=== PATIENT | female | born 1960 | race African-American/Black ===

== ENCOUNTER 2019-05-24 06:12 | Inpatient (IN) | payer MEDICARE, OTHER ==
[2019-05-24] VITALS (8 sets, daily range): BP systolic 80–129; BP diastolic 41–85
[~2019-05-24] VITALS: Ht 162.6 cm; Wt 67.6 kg
[~2019-05-24 06:12] MED LIST: AMLO2.5T PO; ASPI81EC98 PO; FOLI1TAB19 PO; FURO-572 PO; LACT10SO1 PO; LID5T TP; LORA-476 PO; MSCON30 PO; NADO20TA PO; PANT40EC PO; POTA99TA PO; SPIR50TA PO; VITA-123 PO; [UNRECOGNIZED DRUG - CODE] PO; [UNRECOGNIZED DRUG - CODE] PO
[2019-05-24] MEDS ORDERED: NACL 0.9% 2,000 ML IV SCH (06:17)
[2019-05-24] MEDS ORDERED: PROCHLORPERAZINE 10 MG/2 ML VIAL IVP ONE (06:20)
[2019-05-24] MEDS ORDERED: fentaNYL 0.05 MG/ML VIAL IVP ONE ×2 (06:20→14:20)
[2019-05-24] MEDS ORDERED: OCTREOTIDE ACETATE 1.25 MG in NACL 0.9% 250 ML IV SCH (06:20)
[2019-05-24] MEDS ORDERED: PANTOPRAZOLE 40 MG INJ VIAL IVP ONE (06:20)
[2019-05-24 06:36] LABS: HEMATOCRIT 20.5 % (36-48); MEAN CORPUSCULAR HEMOGLOBIN 25 pg (27-31); MEAN CORPUSCULAR HGB CONC 31 g/dL (33-37); PLATELET COUNT (AUTO) 155 K/uL (140-450); RED BLOOD CELL COUNT(AUTO) 2.56 MIL/uL (4.20-5.40); RED CELL DISTRIBUTION WIDTH 20.9 % (11.6-13.7); WHITE BLOOD COUNT (AUTO) 6.8 K/uL (4.8-10.8)
--- NOTE | 2019-05-24 06:40 | NUR ---
58 Y/O FEMALE C/O BLOOD IN VOMIT X 30MINS AGO. B[place] FROM [place], LUNG SOUNDS CLEAR ALL THROUGHOUT. ABD: DISTENDED, FIRM, ASCITIES, ACTIVE BS. JAUNDICE. BP LOW 80/56. A & O X4. UNSTEADY GAIT. MILD YELLOW SCALERAS. VOMITING BLOOD X 30MIN AGO. PMH: ESOPHAGEAL VARICES, BLEEDING ESOPHAGEAL VARICES,CIRRHOSIS, HTN, HERNIAS. NKA.
[2019-05-24] MEDS ORDERED: cefTRIAXone 1,000 MG VIAL ONE (06:41)
[2019-05-24] MEDS ORDERED: OCTREOTIDE ACETATE 1000 MCG/5 ML VIAL ONE (06:42)
[2019-05-24 06:53] LABS: ALBUMIN 1.1 g/dL (3.4-5.0); ANION GAP 13.4 (8-16); CARBON DIOXIDE 27.5 mmol/L (21-32); CREATININE 1.9 mg/dL (0.6-1.3); TOTAL BILIRUBIN 1.1 mg/dL (0.0-1.0)
[2019-05-24 06:57] LABS: HEMOGLOBIN 6.4 g/dL (12.0-16.0)
--- NOTE | 2019-05-24 07:08 | NUR ---
PER VERBAL ORDER FOR SandoSTATIN, after mixing, Dr Lamas ordered 10ml bolus push IV. Then to continue to medication at 10ml/hr.
--- NOTE | 2019-05-24 07:10 | NUR ---
REPORT RECEIVED FROM OLIVE BURGESS. SANDOSTATIN AND NACL BOLUS RUNNING AT THIS TIME. ABNORMAL HEMOGLOBIN LAB RESULT.
--- NOTE | 2019-05-24 07:10 | NUR ---
CONTACT INFO DAUGHTER: OXANA [phone].
--- NOTE | 2019-05-24 07:10 | NUR ---
HAS AN APPOINTMENT FOR PARACENTESIS TODAY AT 1000 AT [facility]. GETS ONCE A WEEK PARACENTESIS.
--- NOTE | 2019-05-24 07:11 | NUR ---
PMH: SMOKER, ALCHOLSIM (LAST DRINK WAS 2 DAYS AGO)
[2019-05-24 07:15] LABS: PROTHROMBIN TIME 14.2 secs (10.8-13.4)
--- NOTE | 2019-05-24 07:16 | NUR ---
POTASSIUM 2.9 LACTIC ACID 4.8
--- NOTE | 2019-05-24 07:17 | NUR ---
XR AT BEDSIDE.
[2019-05-24 07:18] LABS: POTASSIUM 2.9 mmol/L (3.5-5.1)
--- NOTE | 2019-05-24 07:22 | NUR ---
PT GIVEN HOSPITAL PHONE TO CONTACT DAUGHTER
--- NOTE | 2019-05-24 07:23 | NUR ---
PAIN 10/10 PER PATIENT. PT HAS RECEIEVED FENTANYL PRIOR TO CHANGE OF SHIFT. NOTIFIED DR STRICKLAND OF PTS REQUEST FOR MORE PAIN MEDICATION
--- NOTE | 2019-05-24 07:25 | NUR ---
Pt report given to JENIFER CORRAL. Transfer of care at this time.
[2019-05-24] MEDS ORDERED: MORPHINE SULFATE 4 MG/ML SYR IVP ONE (07:30)
[2019-05-24] MEDS ORDERED: POTASSIUM CHL 20 MEQ/ 1/2 NS 1,000 ML IV ONE (07:30)
[2019-05-24 07:33] LABS: EOSINOPHILS % (MANUAL) 2 % (0-4); LYMPHOCYTES % (MANUAL) 23 % (20-46); MONOCYTES % (MANUAL) 10 % (5-12)
--- NOTE | 2019-05-24 07:46 | NUR ---
MORPHINE ADMINISTERED FOR PTS ABDOMINAL AND BACK PAIN 02/16. WARM PACK APPLIED TO PTS BACK FOR COMFORT AND PAIN MEASURES. POTASSIUM CHLORIDE STARTED AT 100 MLS/HR FOR PTS ABNORMAL POTASSIUM LEVEL
--- NOTE | 2019-05-24 08:01 | NUR ---
NADR, PAIN 02/16
--- NOTE | 2019-05-24 08:07 | NUR ---
BP 86/45 DR KRAMER NOTIFIED
--- NOTE | 2019-05-24 08:10 | NUR ---
VERBAL ORDER FOR NACL BOLUS
[2019-05-24] MEDS ORDERED: HYDROcodone/APAP 5/325 MG 1 TAB TAB PO PRN (08:15)
[2019-05-24] MEDS ORDERED: ONDANSETRON 4 MG/2 ML VIAL IM/IVP PRN (08:15)
[2019-05-24] MEDS ORDERED: DOCUSATE SODIUM 100 MG GELCAP PO PRN (08:15)
[2019-05-24] MEDS ORDERED: ACETAMINOPHEN 325 MG TAB PO PRN (08:15)
[2019-05-24] MEDS ORDERED: NACL 0.45% 1,000 ML IV ONE (08:15)
--- NOTE | 2019-05-24 08:22 | NUR ---
PATIENT AND DR KRAMER HAS SIGNED BLOOD CONSENT
--- NOTE | 2019-05-24 08:28 | NUR ---
BP 88/52
--- NOTE | 2019-05-24 08:40 | NUR ---
Patient will be admitted to care of [facility]. Admited to ICU BED 5. Belongings list completed. Report to INCOLE BURGESS. POTASSIUM CHLORIDE, NACL BOLUS, AND SANDOSTATIN INFUSION UPON ADMIT
--- NOTE | 2019-05-24 08:40 | NUR ---
PT ADMITTED TO ICU FROM ER. BEDSIDE REPORT RECEIVED FROM JENIFER CORRAL. PT IS AAOX4, ABLE TO MAKE NEEDS KNOWN AND FOLLOWS COMMANDS. TEMP 96.9. S[place]US [place] ON MONITOR. S1 S2 HEARD. PT IS ON ROOM AIR. SPO2 99%. LUNGS SOUND CLEAR BILATERALLY. NO SIGNS OF RESPIRATORY DISTRESS OR SOB NOTED. ABDOMEN ROUND AND DISTENDED. BOWEL SOUNDS PRESENT. PERIPHERAL IVS G 18 TO RIGHT EJ AND LEFT FOREARM PATENT AND INTACT, RUNNING SANDOSTATIN AT 10 ML/HR AND KCL IN 1/2 NS AT 100 ML/HR. SKIN IS INTACT, DRY AND WARM TO TOUCH. PULSES PALPABLE TO ALL EXTREMITIES. CAP REFILL < 2 SEC. BED IN LOWEST POSITION LOCKED. CALL LIGHT WITHIN REACH. DR. HAGAN AT BEDSIDE SPEAKING WITH PT. SAFETY PRECAUTIONS IN PLACE. WILL CONTINUE TO MONITOR.
[2019-05-24] MEDS ORDERED: NACL 0.9% 1,000 ML IV ONE (08:50)
--- NOTE | 2019-05-24 08:50 | NUR ---
1ST UNIT OF BLOOD TRANSFUSION STARTED. WILL MONITOR FOR S/SX OF ADVERSE REACTIONS.
[2019-05-24] MEDS: FOLIC ACID 1 MG TAB PO SCH (09:00)
[2019-05-24] MEDS ORDERED: LORazepam 2 MG/ML VIAL IVP PRN (09:00)
[2019-05-24] MEDS: THIAMINE 100 MG TAB PO SCH (09:00)
[2019-05-24] MEDS: MORPHINE SULFATE 2 MG/ML SYR IVP PRN ×4 (09:20→21:36)
--- NOTE | 2019-05-24 09:25 | NUR ---
RECEIVED CALL FROM DR. VELAZQUEZ. REPORT GIVEN ON PT'S CONDITION.
[2019-05-24] MEDS ORDERED: PANTOPRAZOLE 80 MG in NACL 0.9% 100 ML IV SCH (09:30)
--- NOTE | 2019-05-24 09:30 | NUR ---
RECEIVED CALL FROM AUNT NAVI. UPDATES GIVEN ON PT'S CONDITION.
--- NOTE | 2019-05-24 09:35 | NUR ---
STAHL CATH INSERTED. PT TOLERATED WELL.
[2019-05-24 09:37] LABS: MAGNESIUM 1.6 mg/dL (1.8-2.4); PHOSPHORUS 3.7 mg/dL (2.5-4.9); THYROID STIMULATING HORMONE 1.32 uIU/mL (0.34-3.74)
[2019-05-24] MEDS: NACL 0.9% 1,000 ML IV SCH (10:01)
[2019-05-24] MEDS ORDERED: MULTIVITAMIN 1 TAB PO SCH (10:09)
--- NOTE | 2019-05-24 10:20 | NUR ---
RECEIVED ORDER TO ADMINISTER ANOTHER 2 MG MORPHINE FOR CENTRAL LINE INSERTION. DR. HAGAN AWARE THAT PT HAD MORPHINE 2MG AT 0920. OK TO GIVE ANOTHER DOSE PER DR. HAGAN. ORDER CARRIED OUT.
[2019-05-24] MEDS ORDERED: POTASSIUM CHLORIDE 40 MEQ, LIDOCAINE MPF 1% 25 MG in NACL 0.9% 250 ML IV SCH (10:30)
--- NOTE | 2019-05-24 10:30 | NUR ---
CENTRAL LINE INSERTION AT BEDSIDE. PT TOLERATING WELL.
--- NOTE | 2019-05-24 10:39 | NUR ---
DISCHARGE PLANNING: CONTACTED [facility] AT [phone] ABLE TO SPEAK TO [facility] [employer]ULT EDUCATION. SHE STATED THERE IS NO COLLECTOR OF AQUARIUM SPECIMENS ASSIGNED YET TO THE PATIENT SINCE THEY JUST OPENED THE CASE. SHE ALSO PROVIDED ME THE FAX NUMBER [phone] TO SEND CLINICALS. CLINICALS SENT. Addendum: 05/25/19 at 0985 by Ophelia Beal DC PLANNING: FAXED THE POST STABILIZATION FORM AND THE ORDER TO [facility] [phone]. CALLED [facility] SPOKE WITH THE COORDINATOR STATED STILL NO CM ASSIGNED TO THIS PT, ONCE THEY RECEIVE THE ORDER WILL REVIEW IT AND CALL BACK. CM TO FOLLOW Addendum: 05/25/19 at 1722 by Chelita Godfrey CM Received Cm order to transfer pt out for higher level of care. Orders and packet faxed to [place] with phone numbers to f/u with journeyman powerhouse operator, unit and residents. Milk Condenser notified. Chelita Godfrey, ACSW/CM Ext [phone]
[2019-05-24] MEDS ORDERED: MULTIVITAMIN-12 10 ML, THIAMINE 100 MG, MAGNESIUM SULFATE 50% 2,000 MG, FOLIC ACID 1 MG... IV SCH ×5 (11:00)
--- NOTE | 2019-05-24 11:00 | NUR ---
CENTRAL LINE UNABLE TO INSERT. PT RECEIVING BLOOD TRANSFUSION AND HAS ONLY ONE MORE IV ACCESS. PER KEYONA, PHARMACIST, RUN KCL AND PROTONIX TOGETHER AT THIS TIME AND CONTINUE BANANA BAG AND SANDOSTATIN AFTER BLOOD TRANSFUSION. DR. HAGAN AWARE.
--- NOTE | 2019-05-24 11:10 | NUR ---
BLOOD TRANSFUSION FINISHED. PT TOLERATED WELL. NO SIGNS OF ADVERSE REACTIONS NOTED.
--- NOTE | 2019-05-24 11:15 | NUR ---
CALLED PICC LINE OFFICE AT [phone] AND MADE AWARE OF PICC LINE INSERTION ORDER. PER STAFF, WILL RELAY MESSAGE TO ON-CALL PICC LINE NURSE
--- NOTE | 2019-05-24 11:30 | NUR ---
2ND UNIT OF BLOOD TRANSFUSION STARTED.
[2019-05-24] MEDS ORDERED: ALBUTEROL SULFATE/IPRATROPIU 3 ML SOL IH PRN (11:35)
[2019-05-24 11:43] LABS: BILIRUBIN,URINE 2+ (NEGATIVE); BLOOD, URINE NEGATIVE (NEGATIVE); COLOR,URINE YELLOW (YELLOW); LEUKOCYTE ESTERASE ,URINE NEGATIVE (NEGATIVE); NITRITE, URINE NEGATIVE (NEGATIVE); UGLUCOSE NEGATIVE (NEGATIVE)
--- NOTE | 2019-05-24 11:45 | NUR ---
BP 84/[address] HAGAN AWARE. NO NEW ORDERS GIVEN.
[2019-05-24 11:49] LABS: BARBITURATE, URINE NEG. ng/ml (NEG <=200); BENZODIAZEPINE, URINE NEG. ng/mL (NEG <=200); CANNABINOID, URINE NEG. ng/mL (NEG <=50); COCAINE, URINE NEG. ng/mL (NEG <=300); OPIATE, URINE POS. ng/mL (NEG <=2000); PHENCYCLIDINE SCREEN,URINE NEG. ng/mL (NEG <=25)
[2019-05-24] MEDS ORDERED: SPIRONOLACTONE 50 MG TAB PO SCH (11:55)
[2019-05-24] MEDS ORDERED: FUROSEMIDE 20 MG TAB PO SCH (11:55)
[2019-05-24] MEDS: LORazepam 1 MG TAB PO SCH ×3 (11:59→23:19)
[2019-05-24] MEDS ORDERED: MAG SULF 2000 MG/WATER PREMIX 50 ML IV ONE (12:00)
[2019-05-24] MEDS ORDERED: MAG SULF 2000 MG/WATER PREMIX 50 ML IV SCH (12:00)
[2019-05-24] MEDS ORDERED: LORazepam 1 MG TAB PO SCH (12:00)
[2019-05-24] MEDS ORDERED: LORazepam 2 MG/ML VIAL IVP SCH (12:00)
--- NOTE | 2019-05-24 12:00 | NUR ---
DR. HAGAN AWARE OF LOW BP 83/54 (MAP 65) AT THIS TIME. HOLD ATIVAN AT THIS TIME PER DR. HAGAN.
[2019-05-24 12:10] LABS: RBC,URINE 0-5 /HPF (0-5); WBC,URINE 0-5 /HPF (0-5)
[2019-05-24 12:11] LABS: HYALINE CASTS, URINE 0-10 /LPF (None Seen)
[2019-05-24 12:12] LABS: YEAST,URINE Rare /HPF (None Seen)
[2019-05-24 12:14] LABS: APPEARANCE,URINE HAZY (CLEAR)
[2019-05-24] MEDS ORDERED: AZITHROMYCIN 500 MG in DEXTROSE 5% 250 ML IV ONE (13:00)
--- NOTE | 2019-05-24 13:00 | NUR ---
PER PICC LINE NURSE, HYACINTH, HE WILL COME AROUND 5 PM FOR PICC LINE INSERTION.
[2019-05-24] MEDS ORDERED: MIDAZOLAM 2 MG/2 ML VIAL ONE (13:10)
[2019-05-24] MEDS ORDERED: fentaNYL 0.05 MG/ML VIAL ONE (13:10)
--- NOTE | 2019-05-24 13:30 | NUR ---
EGD AT BEDSIDE BY DR. VELAZQUEZ AND OR TEAM. WILL FOLLOW UP ON ORDERS AND CONTINUE TO MONITOR.
[2019-05-24] MEDS ORDERED: ALBUMIN HUMAN 25% 100 ML IV SCH (13:40)
[2019-05-24] MEDS ORDERED: FUROSEMIDE 20 MG/2 ML VIAL IVP SCH (13:40)
--- NOTE | 2019-05-24 14:10 | NUR ---
LINENS CHANGED, BED BATH GIVEN. PT TOLERATED WELL.
[2019-05-24] MEDS ORDERED: MIDAZOLAM 2 MG/2 ML VIAL IVP ONE (14:20)
[2019-05-24] MEDS: OCTREOTIDE ACETATE 1.25 MG in NACL 0.9% 250 ML IV SCH ×3 (14:24→16:35)
[2019-05-24] MEDS: ALBUMIN HUMAN 25% 100 ML IV SCH ×2 (14:25→20:14)
--- NOTE | 2019-05-24 14:55 | NUR ---
EGD COMPLETED. PER DR. VELAZQUEZ, ONLY 2 UNITS OF PRBC TO BE GIVEN AT THIS TIME. DR. VELAZQUEZ AND DR. HAGAN MADE AWARE OF LOW URINE OUTPUT 40 ML SINCE STAHL INSERTION. ORDER RECEIVED. WILL CONTINUE TO MONITOR.
--- NOTE | 2019-05-24 15:09 | NUR ---
FABIANA FROM LAB MADE AWARE THAT BLOOD TRANSFUSION WAS DONE AT 1400 AND CBC TO BE DRAWN AROUND 1600.
[2019-05-24 16:38] LABS: BASOPHILS % (AUTO) 0.1 % (0.0-2.0); HEMATOCRIT 27.3 % (36-48); HEMOGLOBIN 8.4 g/dL (12.0-16.0); LYMPHOCYTES # (AUTO) 0.6 K/uL (2.5-16.5); LYMPHOCYTES % (AUTO) 3.3 % (20.5-51.1); MEAN CORPUSCULAR HEMOGLOBIN 27 pg (27-31); MEAN CORPUSCULAR HGB CONC 31 g/dL (33-37); MEAN CORPUSCULAR VOLUME 86.2 fL (80-94); MONOCYTES # (AUTO) 1.4 K/uL (0.8-1.0); MONOCYTES % (AUTO) 8.3 % (1.7-9.3); NEUTROPHILS # (AUTO) 15.2 K/uL (1.8-7.7); NEUTROPHILS % (AUTO) 88.3 % (42.2-75.2); PLATELET COUNT (AUTO) 139 K/uL (140-450); RED BLOOD CELL COUNT(AUTO) 3.17 MIL/uL (4.20-5.40); RED CELL DISTRIBUTION WIDTH 18.4 % (11.6-13.7); WHITE BLOOD COUNT (AUTO) 17.2 K/uL (4.8-10.8)
--- NOTE | 2019-05-24 17:08 | NUR ---
UNABLE TO COLLECT SPUTUM. PT DOES NOT COUGH. DR. HAGAN NOTIFIED. HOLD OFF TO COLLECT SPUTUM AT THIS TIME PER DR. HAGAN.
[2019-05-24] MEDS: METOCLOPRAMIDE 10 MG/2 ML INJ VIAL IVP SCH ×2 (17:31→23:19)
[2019-05-24] MEDS: SODIUM FERRIC GLUCONATE 125 MG in NACL 0.9% 100 ML IV SCH (17:54)
--- NOTE | 2019-05-24 18:03 | NUR ---
URINE OUTPUT 140 ML SINCE STAHL INSERTION AT 0935. DR. NORRIS MADE AWARE. WILL FOLLOW UP ON ORDERS.
[2019-05-24] MEDS ORDERED: MAGNESIUM CITRATE 300 ML BTL PO SCH (18:40)
[2019-05-24 18:48] LABS: ANION GAP 14.6 (8-16); CARBON DIOXIDE 24.8 mmol/L (21-32); POTASSIUM 4.4 mmol/L (3.5-5.1)
[2019-05-24 18:49] LABS: CREATININE 1.7 mg/dL (0.6-1.3)
--- NOTE | 2019-05-24 19:18 | NUR ---
REPORT GIVEN TO DEHYDROGENATION OPERATOR HEAD RN FOR CONTINUITY OF CARE. NO S/SX OF DISTRESS NOTED AT THIS TIME.
--- NOTE | 2019-05-24 19:19 | NUR ---
REPORT RECEIVED FROM AM NURSE AT BEDSIDE. PT IN STABLE CONDITION. AAOX1-2. PT CURRENTLY SLEEPING. NO COMPLAINTS OF PAIN. NO SOB. PT IS AMBULATORY. PT HAS STAHL INSERTED TODAY 05/24/19 DURING THE AM SHIFT. IV SITE R EJ 18G RUNNING SANDOSTATIN@10ML/HR PATENT AND INTACT. L UA 18G RUNNING NS@10ML/HR PATENT AND INTACT. SKIN WARM, DRY, AND INTACT WITH NO OPEN WOUNDS. BED LOCKED IN LOW POSITION. CALL VILLEGAS WITHIN REACH. SAFETY PRECAUTION IN PLACE. ALL NEEDS MET AT THIS TIME.
--- NOTE | 2019-05-24 19:30 | NUR ---
PICC LINE NURSE ARRIVED TO INSERT PICC LINE.
[2019-05-24] MEDS: RIFAXIMIN 550 MG TAB PO SCH (20:09)
[2019-05-24] MEDS: SPIRONOLACTONE 50 MG TAB PO SCH (20:09)
[2019-05-24] MEDS: SENNA 8.6 MG TAB PO SCH (20:09)
--- NOTE | 2019-05-24 20:09 | NUR ---
ALBUMIN HUNG AND RUNNING. LASIX GIVEN IVP. ALDACTONE, SENNA, LACTULOSE, AND XIFAXAN GIVEN PO. PT TOLERATED WELL.
[2019-05-24] MEDS: LACTULOSE 20 GM/30 ML UDC PO SCH (20:13)
[2019-05-24] MEDS: FUROSEMIDE 20 MG/2 ML VIAL IVP SCH (20:15)
--- NOTE | 2019-05-24 20:25 | NUR ---
XRAY IN FOR PLACEMENT OF PICC LINE.
[2019-05-24] MEDS ORDERED: NON-FORMULARY ITEM (Lactulose 30 ML) PO SCH (21:00)
--- NOTE | 2019-05-24 21:20 | NUR ---
HYACINTH BURGESS PICC LINE NURSE REQUESTED REPEAT CXR DUE TO PICC LINE BEING 2CM TOO DEEP. LINE HAS BEEN ADJUSTED. AWAITING RADIOLOGY FOR REPEAT CXR.
--- NOTE | 2019-05-24 21:36 | NUR ---
MORPHINE GIVEN FOR 7/10 ABDOMINAL PAIN. PT TOLERATED WELL. PT REPOSITIONED.
[2019-05-25] VITALS (48 sets, daily range): BP systolic 38–135; BP diastolic 18–112
--- NOTE | 2019-05-25 | NUR ---
PATIENT REPOSITIONED FOR COMFORT. DENIES PAIN AT THIS TIME. CALL LIGHT WITHIN REACH.
--- NOTE | 2019-05-25 02:00 | NUR ---
PATIENT ASLEEP IN BED. NO SIGNS OF DISTRESS OR PAIN. ST ON MONITOR. BP 94/60 MAP 74. CALL LIGHT WITHIN REACH. WILL CONTINUE TO MONITOR.
[2019-05-25] MEDS: OCTREOTIDE ACETATE 1.25 MG in NACL 0.9% 250 ML IV SCH ×2 (03:58→16:00)
--- NOTE | 2019-05-25 04:00 | NUR ---
PATIENT REPOSITIONED FOR COMFORT. STAHL CATH CARE PROVIDED. PICC LINE SITE CLEANED USING CHG WIPES. CALL LIGHT WITHIN REACH. WILL CONTINUE TO MONITOR.
[2019-05-25] MEDS: METOCLOPRAMIDE 10 MG/2 ML INJ VIAL IVP SCH ×3 (05:13→18:50)
[2019-05-25] MEDS: NACL 0.9% 1,000 ML IV SCH (05:13)
--- NOTE | 2019-05-25 06:00 | NUR ---
PATIENT RESTING IN BED. BP 94/[address] ON MONITOR. CALL LIGHT WITHIN REACH. WILL CONTINUE TO MONITOR
[2019-05-25] MEDS ORDERED: BISACODYL 10 MG SUPP RC SCH (07:00)
[2019-05-25 07:07] LABS: FOLIC ACID 5.3 ng/mL (>3.0)
--- NOTE | 2019-05-25 07:17 | NUR ---
ENDORSED PATIENT TO DAY SHIFT NURSE ANNE FOR CONTINUITY OF CARE. PATIENT ASLEEP. ST ON MONITOR
--- NOTE | 2019-05-25 07:18 | NUR ---
RECEIVED BEDSIDE REPORT FROM AGENCY SERVICE REPRESENTATIVE NURSE, PT IS AAOX2, DROWSY, ABLE TO FOLLOW SIMPLE COMMANDS, VSS, STATED PAIN TO ABDOMEN 5/10, NO S/S OF DISTRESS, CLEAR LUNG SOUNDS DOMINIQUE. ON RA, O2 SAT 98%, DENIES CHEST PAIN, ST ON FENCE MANUFACTURE SUPERVISOR, CAP REFILL <2 SEC, LARGE DISTENDED ABDOMEN WITH ACTIVE BOWEL SOUNDS, STAHL CATHETER IN PLACE WITH CLEAR NITHIN URINE VIA GRAVITY, ABLE TO MOVE ALL EXTREMITIES, GENERALIZED WEAKNESS NOTED, SKIN IS WARM AND DRY TO TOUCH, SKIN INTACT, PICC LINE TO CEHNTE, PATENT, RUNNING BANANA BAG AT 50 ML/HR, AND SANDOSTATIN AT 100MCG/KG/HR. RIGHT EJ 18GA, PATENT AND SL. HOB ELEVATED TO 30 DEGREES, SAFETY MEASURES IN PLACE, CALL LIGHT WITHIN REACH, WILL CONTINUE TO MONITOR.
--- NOTE | 2019-05-25 07:25 | NUR ---
CALLED DR. HAGAN REGARDING WHAT IS THE SCHEDULE FOR PARACENTESES, DR. HAGAN SAID WAITING FOR RADIOLOGIST AT THIS TIME.
--- NOTE | 2019-05-25 07:30 | NUR ---
ENDORSED PATIENT CARE TO JENIFER GROSS AT THIS TIME.
[2019-05-25 07:35] LABS: BASOPHILS % (AUTO) 0.2 % (0.0-2.0); EOSINOPHILS # (AUTO) 0.1 K/uL (0-0.4); EOSINOPHILS % (AUTO) 0.4 % (0.0-4.0); LYMPHOCYTES # (AUTO) 0.9 K/uL (2.5-16.5); LYMPHOCYTES % (AUTO) 6.7 % (20.5-51.1); MEAN CORPUSCULAR HEMOGLOBIN 27 pg (27-31); MEAN CORPUSCULAR HGB CONC 32 g/dL (33-37); MEAN CORPUSCULAR VOLUME 84.8 fL (80-94); MONOCYTES % (AUTO) 7.3 % (1.7-9.3); NEUTROPHILS # (AUTO) 12.1 K/uL (1.8-7.7); NEUTROPHILS % (AUTO) 85.4 % (42.2-75.2); PLATELET COUNT (AUTO) 108 K/uL (140-450); RED BLOOD CELL COUNT(AUTO) 2.26 MIL/uL (4.20-5.40); WHITE BLOOD COUNT (AUTO) 14.2 K/uL (4.8-10.8)
--- NOTE | 2019-05-25 07:40 | NUR ---
CRITICAL LAB WITH HGB 6.2, REPORTED TO DR. HAGAN, WILL ORDER 2UNITS OF RBC, INFORMED BLOOD BANK
[2019-05-25 07:41] LABS: HEMATOCRIT 19.2 % (36-48); HEMOGLOBIN 6.2 g/dL (12.0-16.0)
[2019-05-25] MEDS: FUROSEMIDE 20 MG/2 ML VIAL IVP SCH ×2 (08:52→20:31)
[2019-05-25] MEDS: LACTULOSE 20 GM/30 ML UDC PO SCH ×2 (08:52→20:32)
[2019-05-25] MEDS: SENNA 8.6 MG TAB PO SCH ×2 (08:53→20:32)
[2019-05-25] MEDS: SPIRONOLACTONE 50 MG TAB PO SCH ×2 (08:53→20:32)
[2019-05-25] MEDS: FOLIC ACID 1 MG TAB PO SCH (08:53)
[2019-05-25] MEDS: THIAMINE 100 MG TAB PO SCH (08:54)
[2019-05-25] MEDS: RIFAXIMIN 550 MG TAB PO SCH ×2 (08:54→20:32)
--- NOTE | 2019-05-25 08:56 | NUR ---
PATIENT HAS BEEN SCREENED AND CATEGORIZED HIGH NUTRITION RISK. PATIENT WILL BE SEEN WITHIN 1-2 DAYS OF ADMISSION. 05/25/[address]
[2019-05-25] MEDS ORDERED: MULTIVITAMIN 1 TAB PO SCH (09:00)
[2019-05-25] MEDS ORDERED: FUROSEMIDE 20 MG TAB PO SCH (09:00)
[2019-05-25] MEDS ORDERED: LACTOBACILLUS RHAMNOSUS GG 1 EACH CAP PO SCH (09:00)
[2019-05-25] MEDS ORDERED: SPIRONOLACTONE 50 MG TAB PO SCH (09:00)
[2019-05-25] MEDS ORDERED: PANTOPRAZOLE 40 MG INJ VIAL IVP SCH ×2 (09:00)
--- NOTE | 2019-05-25 09:06 | NUR ---
SCHEDULED MEDICATION GIVEN, PATIENT TOLERATED WELL.
[2019-05-25] MEDS: MAGNESIUM CITRATE 300 ML BTL PO SCH ×2 (09:11→11:01)
[2019-05-25] MEDS ORDERED: FLUCONAZOLE 100 MG TAB PO SCH (09:30)
[2019-05-25 09:36] LABS: CHOL/HDL RATIO 2.8 (1-4.5)
--- NOTE | 2019-05-25 10:35 | NUR ---
PT IS OFF UNIT FOR CT SCAN WITH RN AND CANINE ENFORCEMENT OFFICER.
--- NOTE | 2019-05-25 10:44 | NUR ---
PATIENT IS BACK TO UNIT, NO INCIDENT OCCUR, NO S/S OF DISTRESS, VSS, DENIES PAIN, POSITION CHANGED FOR OFF LOAD PRESSURE.
--- NOTE | 2019-05-25 11:00 | NUR ---
PT HAD A BM, BLACK STOOL, WILL SEND SPECIMEN TO LAB.
--- NOTE | 2019-05-25 11:00 | NUR ---
STARTED PRECEDEX, DRY WEIGHT 87.5KG. LOADING DOSE STARTED. Addendum: 05/26/19 at 1016 by Manuel Ray RN PLEASE DISCARD, WRONG PT.
--- NOTE | 2019-05-25 11:10 | NUR ---
DR ACOSTA SEEN PT.
--- NOTE | 2019-05-25 11:25 | NUR ---
CALLED LAB FOR PRBC WHICH IS STILL PENDING.
--- NOTE | 2019-05-25 11:30 | NUR ---
CALLED US TECH FOR PARACENTESIS. US TECH SAID WILL CALL ME BACK AND LET ME KNOW THE TIME FOR THE PROCEDURE WHEN THEY GET HOLD OF THE RADIOLOGIST.
[2019-05-25] MEDS ORDERED: PIPERACILLIN/TAZOBACTAM 4.5 GM in DEXTROSE 5% 100 ML IV SCH ×5 (12:00→18:00)
--- NOTE | 2019-05-25 12:00 | NUR ---
1 ST UNITS OF RBC STARTED, PT VSS, NO S/S OF DISTRESS, TWO RNS VERIFIED.
--- NOTE | 2019-05-25 12:23 | NUR ---
Late entry. Confirmed with RN that 0.45 NS IV completed at 0840 and Sandostatin completed at 0840 at time of transfer. Continued on other unit.
[2019-05-25] MEDS: LORazepam 1 MG TAB PO SCH ×2 (12:26→18:00)
--- NOTE | 2019-05-25 12:33 | NUR ---
CALLED RESIDENT MD JOHN, MADE HIM AWARE PT VOMITED BLOOD.
[2019-05-25] MEDS ORDERED: NACL 0.9% 500 ML IV SCH (12:40)
--- NOTE | 2019-05-25 12:41 | NUR ---
CALLED DR HAGAN AND MADE HER AWARE PT VOMIT BLOOD AND HAS DARK BLOODY STOOL. BP 79/56. Addendum: 05/31/19 at 0925 by Manuel Ray RN MADE DR HAGAN AWARE ESTIMATED BLOOD EMESIS IS ABOUT 200ML
--- NOTE | 2019-05-25 12:58 | NUR ---
DR. ACOSTA CAME IN STATED INTUBATING PATIENT, RT AND DR. HAGAN AT BEDSIDE, PT HR 119, BP 82/52, RR 14, O2 SAT 99%, DR. ACOSTA ORDERED ETOMIDATE 40 MG AND SUCCINYLCHOLINE 50 MG IV PUSH AND GIVEN BEFORE THE PROCEDURE.
[2019-05-25] MEDS ORDERED: ETOMIDATE 20 MG/10 ML VIAL IVP SCH (13:00)
[2019-05-25] MEDS ORDERED: AZITHROMYCIN 250 MG in DEXTROSE 5% 250 ML IV SCH (13:00)
[2019-05-25] MEDS ORDERED: metroNIDAZOLE 500 MG/NS PREMIX 100 ML IV SCH (13:00)
--- NOTE | 2019-05-25 13:00 | NUR ---
BOLUS PT WITH 500ML NS.
[2019-05-25] MEDS ORDERED: SUCCINYLCHOLINE CHLORIDE 200 MG/10 ML VIAL IVP SCH (13:15)
--- NOTE | 2019-05-25 13:15 | NUR ---
PT BP 77/58, HR 200, O2 SAT 78% RR 21, DR. ACOSTA AND DR. HAGAN AT BEDSIDE, LEVOPHED AND IV NS BOLUS RUNNING AT THIS TIME.
--- NOTE | 2019-05-25 13:20 | NUR ---
STARTED PT ON LEVOPHED 12MCG/KG/MIN
--- NOTE | 2019-05-25 13:25 | NUR ---
PT IS INTUBATED AND AGITATED, STILL VOMITING BRIGHT RED BLOOD, SUCTION PROVIDED BY RT, DR. ACOSTA ORDERED PROPOFOL DRIP.
[2019-05-25] MEDS ORDERED: PROPOFOL 1000 MG/100 ML PREMIX 100 ML IV ONE (13:36)
--- NOTE | 2019-05-25 13:40 | NUR ---
PER DR. HAGAN NO NEED TO ACTIVE THE MASSIVE HEMORRHAGE PROTOCOL AT THIS TIME, SHE WILL ORDER MORE BLOOD TRANSFUSION, BLOOD BANK MADE AWARE.
--- NOTE | 2019-05-25 13:40 | NUR ---
STARTED PROPOFOL, DRY WEIGHT 67.6KG
[2019-05-25] MEDS ORDERED: MIDAZOLAM MDV 50 MG in NACL 0.9% 40 ML IV PRN (13:45)
--- NOTE | 2019-05-25 13:50 | NUR ---
PER DR. HAGAN PARACENTESIS CANCELED AT THIS TIME DUE TO PATIENT IS ACTIVE BLEEDING.
--- NOTE | 2019-05-25 13:50 | NUR ---
DR. HAGAN SPOKE TO PATIENT'S AUNT NAVI RILEY ON THE PHONE AND UPDATED PATIENT'S CONDITION AND CRITICAL SITUATION.
[2019-05-25] MEDS ORDERED: PANTOPRAZOLE 80 MG in NACL 0.9% 100 ML IV SCH (14:00)
--- NOTE | 2019-05-25 14:00 | NUR ---
DR. VELAZQUEZ CAME IN TO SEE PATIENT AT BEDSIDE, DR. HAGAN UPDATED PATIENT'S CONDITION
--- NOTE | 2019-05-25 14:10 | NUR ---
PATIENT'S MOTHER ANGEL WILSON CALLED, UPDATED PATIENT'S CONDITION, LEFT NUMBER TO CALL [phone].
[2019-05-25] MEDS ORDERED: SODIUM BICARBONATE 8.4% 50 MEQ/50 ML VIAL ONE (14:28)
--- NOTE | 2019-05-25 14:37 | NUR ---
DR. VELAZQUEZ STARTED BEDSIDE PROCEDURE, DR. HAGAN AND SURGICAL TEAM AT BEDSIDE.
--- NOTE | 2019-05-25 14:40 | NUR ---
2ND UNITS OF RBC STARTED, PT BP 106/55, HR 112, RR 26, TEMP 96.6F, O2 SAT 98%. DR. VELAZQUEZ STILL DOING PROCEDURE AT BEDSIDE.
--- NOTE | 2019-05-25 15:30 | NUR ---
DR HAGAN WANTS ANOTHER 1.5L BOLUS NS. TOTAL BOLUS WILL BE 2L.
--- NOTE | 2019-05-25 15:36 | NUR ---
PROCEDURE ENDED AT THIS TIME, ELAINE TUBE IS PLACED. PATIENT'S HR 196, BP 71/49, RR 25, O2 100%. Addendum: 05/25/19 at 1557 by Mark Campuzano RN DR. HAGAN NOTED THE BP LEVEL, LEVOPHED IS ON MAX DOSE AT THIS TIME, WILL ORDER PHENYLEPHRINE.
--- NOTE | 2019-05-25 15:37 | NUR ---
DR VELAZQUEZ DONE WITH EGD AND INSERTING ELAINE TUBE. WANTS TO HAVE KUB TO CHECK PLACEMENT.
[2019-05-25] MEDS ORDERED: PHENYLEPHRINE 10 MG/ML VIAL ONE (15:40)
[2019-05-25] MEDS ORDERED: GLUCAGON 1 MG VIAL ONE (15:43)
[2019-05-25] MEDS ORDERED: PROPOFOL 1000 MG/100 ML PREMIX 100 ML IV PRN (15:45)
[2019-05-25] MEDS ORDERED: SODIUM BICARBONATE 8.4% PFS 50 MEQ/50 ML SYR IVP ONE (15:45)
[2019-05-25] MEDS ORDERED: COMMUNICATION ORDER MC PRN (15:45)
[2019-05-25] MEDS ORDERED: PHENYLEPHRINE 40 MG in NACL 0.9% 250 ML IV PRN (15:45)
--- NOTE | 2019-05-25 15:50 | NUR ---
TIDAL CO2 27 TO 32.
--- NOTE | 2019-05-25 16:13 | NUR ---
05/25/19 RD INITIAL ASSESSMENT COMPLETED PLEASE REFER TO NUTRITION ASSESSMENT UNDER CARE ACTIVITY FOR ESTIMATED NUTRITIONAL NEEDS. 1. CONTINUE FULL LIQUID DIET TOLERATED 2. RD RECOMMEND ENSURE BID 3. RD TO FOLLOW-UP 2-3 DAYS, HIGH RISK MING[address]
--- NOTE | 2019-05-25 16:20 | NUR ---
3RD UNITS OF RBC STARTED, TEMP 96.4F, HR 104 RR 26, BP 93/56, O2 SAT 96%, WILL CONTINUE TO MONITOR.
[2019-05-25 16:22] LABS: ANION GAP 24.1 (8-16); CARBON DIOXIDE 14.3 mmol/L (21-32); CREATININE 2.5 mg/dL (0.6-1.3); POTASSIUM 4.4 mmol/L (3.5-5.1)
--- NOTE | 2019-05-25 16:25 | NUR ---
SAL-SYNEPHRINE STARTED ORDERED.
[2019-05-25 16:27] LABS: ALBUMIN 1.4 g/dL (3.4-5.0); TOTAL BILIRUBIN 2.1 mg/dL (0.0-1.0)
--- NOTE | 2019-05-25 16:29 | NUR ---
DR. LLAMAS AND DR. HAGAN AT BEDSIDE DOING CHEST TUBE INSERTION AT THIS TIME.
--- NOTE | 2019-05-25 16:52 | NUR ---
MADE DR HAGAN AWARE TOTAL OF 2L NS BOLUS HAVE BEEN GIVEN, PT HAS LOW URINE OUTPUT. DR HAGAN ORDERED DOPAMINE PRESSOR.
--- NOTE | 2019-05-25 16:58 | NUR ---
DR LYN DONE THE CHEST TUBE INSERTION, DR LYN SECURED THE CHEST TUBE SITE WITH XEROFORM, GAUZE AND FOAM TAPE. CONNECTED CHEST TUBE TO VACUUM SUCTION, BUBBLING SEEN IN WATER SEAL CHAMBER.
--- NOTE | 2019-05-25 17:00 | NUR ---
CONTINUED TO MOMNITOR PT ON VENT WITH SETTINGS CHARTED BREATH SOUNDS PRESENT BILAT COARSE SXN PT WITH REDDISH SECS VENT PLUGGED INTO RED OUTLET
[2019-05-25] MEDS: DOPamine 400 MG/D5W PREMIX 250 ML IV PRN ×3 (17:40→22:28)
--- NOTE | 2019-05-25 17:50 | NUR ---
DR HAGAN IS HERE ON THE PHONE WITH DR VELAZQUEZ. DR HAGAN UNCLAMPED THE BALLOON, AND CONNECTED THE ELAINE TUBE TO LOW INTERMITTENT SUCTION.
[2019-05-25] MEDS ORDERED: PIPERACILLIN/TAZOBACTAM 3.375 GM in DEXTROSE 5% 50 ML IV SCH (18:00)
[2019-05-25] MEDS: SODIUM FERRIC GLUCONATE 125 MG in NACL 0.9% 100 ML IV SCH (18:05)
--- NOTE | 2019-05-25 18:15 | NUR ---
CALLED DR WASHBURN TO COME TO ICU BECAUSE PT'S HR DROPPING DOWN TO 60S.
--- NOTE | 2019-05-25 18:25 | NUR ---
4TH UNITS OF RBC STARTED, NO ADVERSE REACTION FOR THE 3RD UNIT, PATIENT'S BP CONTINUE DROPPING, ON MAX DOSE OF VASOPRESSORS, PATIENT'S AUNT AT BEDSIDE.
--- NOTE | 2019-05-25 18:30 | NUR ---
PATIENT AUNT CAME IN TO PATIENT, DR. HAGAN UPDATED PATIENT'S CONDITION AND GOT AGREEMENT OF DNR WITH NO COMPASSION, JUST ACLS MEDICATIONS TO TRY TO KEEP PATIENT ALIVE UNTIL PATIENT'S MOTHER TO COME FROM [facility].
[2019-05-25] MEDS: NOREPINEPHRINE 16 MG in DEXTROSE 5% 250 ML IV PRN ×2 (19:00→20:28)
--- NOTE | 2019-05-25 19:00 | NUR ---
RECEIVED PT NON RESPONSIVE.SR ON MONITOR.DOPPLER USED TO CHECK PULSE, FAINT THREADY PULSE NOTED. ORALLY INTUBATED FIO2 100% TV500 AC16 PEEP 8.W/PUPILS FIXED AND DILATED 10MM; WITH SCLERA YELLOWISH IN COLOR.W/PICC LINE TO CHENTE INTACT WITH GOOD BLOOD RETURN INFUSING DOPAMINE DRIP 400MG IN 250ML D5W AT 50MCG/KG/MIN (126.6 ML/HR),SAL SYNEPHRINE 40MG IN 250 ML NS AT 150 MCG/MIN (56.25 ML/HR),LEVOPHED 16 MG IN 250ML D5W AT 30MCG/MIN(28.08ML/HR), SANDOSTATIN DRIP AT 40ML/HR. W/CHEST TUBE TO RT SIDE DRAINING 70ML OF RED/BLOODY DRAINAGE.ABDOMEN ROUND, DISTENDED AND FIRM TO TOUCH.W/STAHL CATHETER TO BSD DRAINING 5ML OF DARK NITHIN URINE.BLOOD DRAINING TO MOUTH AND NOSE ALSO NOTED.SUCTIONED.SKIN INTACT.PT WITH SEVERE GENERALIZED WEAKNESS.FLACC 0
--- NOTE | 2019-05-25 19:50 | NUR ---
1ST UNIT FFP STARTED VERIFIED WITH JENIFER ANNE. UNIT # [id number]
--- NOTE | 2019-05-25 20:45 | NUR ---
1ST UNIT FFP COMPLETED. NO UNTOWARD REACTIONS NOTED.
--- NOTE | 2019-05-25 20:55 | NUR ---
WENT OT LAB TO GET 2ND UNIT FFP ; FFP NOT READY.
[2019-05-25] MEDS ORDERED: ALBUMIN HUMAN 25% 100 ML IV SCH (21:00)
--- NOTE | 2019-05-25 21:55 | NUR ---
2ND UNIT FFP STARTED. VERIFIED WITH JENIFER HERNANDEZ.
--- NOTE | 2019-05-25 22:40 | NUR ---
2ND UNIT FFP COMPLETED.NO UNTOWARD REACTIONS NOTED; FAMILY AT BEDSIDE.PHONE CALL TO DR HAGAN; NOTED LEFT EYE SWELLING. PHYSICIAN SAID SHE WILL COME TO SEE PT
--- NOTE | 2019-05-25 22:45 | NUR ---
PER PTS FAMILY AND DR HAGAN; ALL VASOPRESSORS DISCONTINUED
[2019-05-25] MEDS: MORPHINE SULFATE 2 MG/ML SYR IVP PRN (22:57)
--- NOTE | 2019-05-25 23:00 | NUR ---
DR HAGAN SPOKE WITH FAMILY ; DAUGHTER PRATEEK AND AUNT NAVI AT BEDSIDE. PT PLACED ON DNR AND EXTUBATED.
--- NOTE | 2019-05-25 23:12 | NUR ---
ASYSTOLE; NO PULSE APPRECIATED USING DOPPLER.PRONOUNCED BY DR HAGAN; FAMILY AT BEDSIDE.
--- NOTE | 2019-05-25 23:32 | NUR ---
PHONE CALL TO [facility]; SPOKE WITH ERIBERTO; QUESTIONS ANSWERED; REFERRAL # CC [id number] ERIBERTO SAID [facility] WILL CALL AGAIN IF THEY THINK IS A POSSIBLE ORGAN DONOR.
--- NOTE | 2019-05-25 23:46 | NUR ---
PHONE CALL TO STEAMTABLE ATTENDANT RAILROAD'S OFFICE; SPOKE WITH MARK; UPDATE GIVEN; QUESTIONS ANSWERED.AWAITING FOR STEAMTABLE ATTENDANT RAILROAD TO CALL [facility] NET DEVELOPER
--- NOTE | 2019-05-26 00:45 | NUR ---
PHONE CALL FROM [facility] AND SPOKE WITH ELVIA; MADE AWARE THAT WBC AND LACTIC ACID ELEVATED. ELVIA SAID PT IS NOT A CANDIDATE AND CAN BE RELEASED USING SAME REFERRAL # CC [id number]
--- NOTE | 2019-05-26 01:51 | NUR ---
PHONE CALL TO OCCUPATIONAL PHYSICIAN'S OFFICE AGAIN; PER BLANCA ; OCCUPATIONAL PHYSICIAN IS STILL BUSY; MADE AWARE THAT [facility] DOES NOT HAVE MORGUE; BLANCA SAID SHE WILL NOTIFY OCCUPATIONAL PHYSICIAN.
--- NOTE | 2019-05-26 03:42 | NUR ---
PHONE CALL FROM ASSISTANT PROFESSOR OF ENGLISH'S OFFICE; SPOKE WITH ASSISTANT PROFESSOR OF ENGLISH PAMELA RODRIGUES; QUESTIONS ANSWERED. BODY RELEASED REFERENCE NUMBER [id number]
--- NOTE | 2019-05-26 03:45 | NUR ---
PHONE CALL TO NAVI RILEY, AUNT; [phone] RE; MORTUARY. SHE SAID SHE WILL CALL WATER METER INSTALLER SOON SHE GETS INFORMATION OF THE NAME OF THE MORTUARY.AWAITING CALL
--- NOTE | 2019-05-26 04:50 | NUR ---
PHONE CALL TO [facility] ([phone]); NO ANSWER; LEFT MESSAGE TO CHEMICAL MACHINE TENDER'S EXTENSION # 19; BODY FOR MAIL TECHNICIAN.AWAITING CALL
--- NOTE | 2019-05-26 08:00 | NUR ---
CALLED [facility] TO HIDE SORTER PATIENT, THEY SAID THEY DID NOT HAVE HIDE SORTER CERVICES, CALLED PATIENT'S AUNT, WILL CALL BACK.
--- NOTE | 2019-05-26 08:50 | NUR ---
[facility] CALLED REGARDING PATIENT'S INFORMATION, AND WILL INSOLE AND OUTSOLE PREPARER WITHIN ONE HOUR.
--- NOTE | 2019-05-26 09:57 | NUR ---
PATIENT IS PICKED UP BY [facility] [phone]
--- NOTE | 2019-05-26 12:39 | NUR ---
CALLED PT'S AUNT IN CHART ABOUT PT'S BELONGINGS WHICH INCLUDE CLOTHES AND A PAIR SLIPPERS. PT'S AUNT SAID DON'T NEED THEM, OK TO THROW THEM AWAY.
== END 2019-05-25 23:12 | disposition expired | DRG 871 ==
LOC: MED 06:12 → MIC 08:12
PROVIDERS: ADMIT General Practice; ATTEND General Practice
PROC: 30233N1 Transfusion of Nonautologous Red Blood Cells into Peripheral Vein, Percutaneous Approach (ICD-10-PCS; 2019-05-24)
PROC: 02HV33Z Insertion of Infusion Device into Superior Vena Cava, Percutaneous Approach (ICD-10-PCS; 2019-05-24)
PROC: B548ZZA Ultrasonography of Superior Vena Cava, Guidance (ICD-10-PCS; 2019-05-24)
PROC: 0DJ08ZZ Inspection of Upper Intestinal Tract, Via Natural or Artificial Opening Endoscopic (ICD-10-PCS; principal; 2019-05-24 13:30)
PROC: 30233K1 Transfusion of Nonautologous Frozen Plasma into Peripheral Vein, Percutaneous Approach (ICD-10-PCS; 2019-05-25)
PROC: 0W9930Z Drainage of Right Pleural Cavity with Drainage Device, Percutaneous Approach (ICD-10-PCS; 2019-05-25)
PROC: 0DJ08ZZ Inspection of Upper Intestinal Tract, Via Natural or Artificial Opening Endoscopic (ICD-10-PCS; 2019-05-25)
PROC: 5A1935Z Respiratory Ventilation, Less than 24 Consecutive Hours (ICD-10-PCS; 2019-05-25)
PROC: 0BH17EZ Insertion of Endotracheal Airway into Trachea, Via Natural or Artificial Opening (ICD-10-PCS; 2019-05-25)
DX: A41.9 Sepsis, unspecified organism (principal); E43 Unspecified severe protein-calorie malnutrition; J95.811 Postprocedural pneumothorax; N17.0 Acute kidney failure with tubular necrosis; K29.81 Duodenitis with bleeding; R65.21 Severe sepsis with septic shock; K22.6 Gastro-esophageal laceration-hemorrhage syndrome; J96.01 Acute respiratory failure with hypoxia; G93.6 Cerebral edema; J69.0 Pneumonitis due to inhalation of food and vomit; K65.2 Spontaneous bacterial peritonitis; I42.9 Cardiomyopathy, unspecified; D68.9 Coagulation defect, unspecified; E72.20 Disorder of urea cycle metabolism, unspecified; D62 Acute posthemorrhagic anemia; F10.10 Alcohol abuse, uncomplicated; F32.9 Major depressive disorder, single episode, unspecified; I86.4 Gastric varices; K70.31 Alcoholic cirrhosis of liver with ascites; K21.9 Gastro-esophageal reflux disease without esophagitis; J45.909 Unspecified asthma, uncomplicated; F17.210 Nicotine dependence, cigarettes, uncomplicated; E87.6 Hypokalemia; E83.42 Hypomagnesemia; E83.51 Hypocalcemia; K72.90 Hepatic failure, unspecified without coma; T81.82XA Emphysema (subcutaneous) resulting from a procedure, initial encounter; Y83.8 Other surgical procedures as the cause of abnormal reaction of the patient, or of later complication, without mention of misadventure at the time of the procedure; I46.9 Cardiac arrest, cause unspecified; R57.8 Other shock; I50.810 Right heart failure, unspecified; I11.0 Hypertensive heart disease with heart failure; E87.8 Other disorders of electrolyte and fluid balance, not elsewhere classified; K44.9 Diaphragmatic hernia without obstruction or gangrene; K57.30 Diverticulosis of large intestine without perforation or abscess without bleeding; Z66 Do not resuscitate; Z68.25 Body mass index [BMI] 25.0-25.9, adult; Z90.710 Acquired absence of both cervix and uterus; Z91.19 Patient's noncompliance with other medical treatment and regimen; Z79.899 Other long term (current) drug therapy; Z79.82 Long term (current) use of aspirin; Z91.14 Patient's other noncompliance with medication regimen; Y92.89 Other specified places as the place of occurrence of the external cause
CPT/HCPCS: 36415; 36600; 71045; 74018; 76705; 80048; 80053; 80305; 81001; 82140; 82272; 82607; 82728; 82746; 82803; 83036; 83540; 83605; 83615; 83690; 83735; 83880; 84100; 84134; 84443; 84479; 84484; 85025; 85045; 85610; 85730; 86886; 86900; 86901; 86920; 87040; 87070; 87081; 87086; 87205; 93005; 94003; 96361; 96365; 96375; 99291; A9153; C1751; C9113; G0482; J0456; J0696; J0780; J1265; J1610; J1642; J1940; J2001; J2250; J2270; J2354; J2370; J2405; J2543; J2704; J2765; J2916; J3010; J3411; J3475; J3480; J3490; J7030; J7060; J7620; P9016; P9017; P9046; Q0092